=== PATIENT | female | born 1935 | race Caucasian/White ===

== ENCOUNTER → 2017-07-05 | Outpatient (CLI) | payer OTHER ==
[~2017-07-05] MED LIST: ASPIRIN EC81 M1 PO; CALCIUM 500 +1 EAC1 PO; CENTRUM SILVER1 EAC4 PO; CITRATE OF MAG296 ML PO; DIAZEPAM; FLONASE 0.05%50 MCG NASAL; LEVOXYL50 MCG PO; LOVASTATIN; MELATONIN1 MG PO; MEVACOR40 MG PO; NEXIUM; NEXIUM40 MG PO; PROZAC 20 MG20 MG PO; REMERON15 MG PO; SYNTHROID; SYNTHROID50 MCG PO; SYNTHROID75 MCG PO; TRAMADOL 50 MG50 MG PO; TRAZODONE HCL50 MG PO; TYLENOL EXTRA500 MG PO; VITAMIN E400 UNI2 PO; ZANTAC 150MG T150 MG PO; ZOFRAN ODT4 MG PO; ZYRTEC 10 MG TA10 MG PO
== END ==
LOC: RAD 13:58
DX: M16.11 Unilateral primary osteoarthritis, right hip (principal)

== ENCOUNTER 2017-08-08 15:44 | Inpatient (IN) | payer OTHER ==
[~2017-08-08] VITALS: Ht 162.6 cm; Wt 60.1 kg
--- NOTE | ~2017-08-08 | EKG ---
[facility] [place] [address] ELECTROCARDIOGRAM REPORT Name: SANDRA FLORENTINO Room #: [facility] Fatima#: [id number] Admission: 08/08/17 Attend Phys: Discharge: Date of : 31 Report #: [id number] THIS REPORT FOR: //name// [facility] ED Test Date: 2017-08-08 Test Time: 16:52:33 Pat Name: SANDRA FLORENTINO Department: Room: Gender: F Ad Clerk: yue : 1935 Requested By: Garth Domingo Order Number: [id number] MD: Donte Pratt Measurements Intervals [place] Rate: 62 P: 57 CT: 222 QRS: -18 QRSD: 155 T: 108 QT: 497 QTc: 505 Interpretive Statements Sinus rhythm Prolonged CT interval Left bundle branch block Compared to ECG 02/24/2014 11:29:30 First degree AV block now present Atrial premature complex(es) no longer present Electronically Signed On 08-08-2017 17:22:04 CDT by Donte Pratt [email or web address] <ELECTRONICALLY SIGNED> By: Donte Pratt MD, [facility] 08/08/17 172 51 51 Donte Pratt MD, [facility] /EPI
[~2017-08-08 15:44] MED LIST changes: -CALCIUM 500 +1 EAC1 PO; -CENTRUM SILVER1 EAC4 PO; -FLONASE 0.05%50 MCG NASAL; -PROZAC 20 MG20 MG PO; -REMERON15 MG PO; -SYNTHROID50 MCG PO; -SYNTHROID75 MCG PO; -TRAZODONE HCL50 MG PO; -TYLENOL EXTRA500 MG PO; -VITAMIN E400 UNI2 PO; -ZYRTEC 10 MG TA10 MG PO
[2017-08-08 16:08] VITALS: BP 109/53
[2017-08-08 16:30] LABS: ABSOLUTE NEUTROPHILS 1.4 thou/uL (1.4-8.2); BASOPHILS 0.8 % (0.0-2.0); EOSINOPHILS 3.4 % (0.0-3.0); HEMATOCRIT 36.3 % (37.0-47.0); HEMOGLOBIN 12.4 gm/dL (12.0-15.0); LYMPHOCYTES 57.1 % (24.0-44.0); MCH 30.3 pg (26.0-34.0); MCHC 34.3 g/dL (28.0-37.0); MCV 88.4 fL (80.0-100.0); MONOCYTES 11.1 % (1.0-8.0); PLATELET COUNT 274 thou/uL (150-400); POLYS 27.6 % (36.0-66.0)
[2017-08-08 16:39] LABS: URINE BILIRUBIN NEGATIVE (Negative); URINE BLOOD 1+ (Negative); URINE CLARITY CLEAR; URINE COLOR YELLOW; URINE GLUCOSE-RANDOM* NEGATIVE (Negative); URINE KETONES NEGATIVE (Negative); URINE LEUKOCYTES-REFLEX NEGATIVE (Negative); URINE NITRITE-REFLEX NEGATIVE (Negative); URINE PROTEIN (DIPSTICK) NEGATIVE (Negative); URINE UROBILINOGEN 0.2 E.U./dl (0.2-1.0)
[2017-08-08 16:41] LABS: ANION GAP 5 mmol/L (7-16); BUN 17 mg/dL (7-18); CALCIUM 10.1 mg/dL (8.5-10.1); CHLORIDE 96 mmol/L (98-107); CO2 29 mmol/L (21-32); CREATININE 1.2 mg/dL (0.6-1.0); GLUCOSE 99 mg/dL (74-106); POTASSIUM 3.6 mmol/L (3.5-5.1); SODIUM 130 mmol/L (136-145)
[2017-08-08 16:46] LABS: ALBUMIN 3.3 g/dL (3.4-5.0); DIRECT BILIRUBIN < 0.1 mg/dL (<0.1-0.3); SGOT 27 U/L (15-37); SGPT 19 U/L (30-65); TOTAL BILIRUBIN 0.2 mg/dL (<0.1-1.0); TOTAL PROTEIN 7.3 g/dL (6.4-8.2); TROPONIN-I < 0.04 ng/mL (<0.06)
[2017-08-08 16:51] LABS: BACTERIA-REFLEX None Seen /HPF (None Seen); CASTS None Seen /LPF (None Seen); CRYSTALS None Seen /LPF (None Seen); SQUAMOUS None Seen /LPF (0-3); URINE RBC 0-2 Rare /HPF (0-2); URINE WBC-REFLEX 0-5 Rare /HPF (0-5)
[2017-08-08 18:18] VITALS: BP 109/53
[2017-08-08 18:35] VITALS: BP 110/62
[2017-08-08 20:15] VITALS: BP 144/68
[2017-08-09 04:00] VITALS: BP 121/55
[2017-08-09 07:00] VITALS: BP 116/60
[2017-08-09 10:18] LABS: HEMATOCRIT 34.5 % (37.0-47.0); HEMOGLOBIN 11.8 gm/dL (12.0-15.0); MCH 30.5 pg (26.0-34.0); MCHC 34.2 g/dL (28.0-37.0); MCV 89.1 fL (80.0-100.0); RBC 3.87 mil/uL (4.20-5.00); RDW 13.9 % (10.5-14.5); WBC 4.3 thou/uL (4.0-11.0)
[2017-08-09 10:39] LABS: CALCIUM 9.5 mg/dL (8.5-10.1); CREATININE 1.2 mg/dL (0.6-1.0); POTASSIUM 3.6 mmol/L (3.5-5.1)
[2017-08-09 16:02] VITALS: BP 109/60
[2017-08-09 20:00] VITALS: BP 105/55
[2017-08-10 02:30] VITALS: BP 125/65
[2017-08-10 07:50] VITALS: BP 134/64
[2017-08-10 19:51] VITALS: BP 127/58
[2017-08-11 07:42] VITALS: BP 133/62
[2017-08-11] MEDS ORDERED: PROZAC 20 MG20 MG PO (09:54)
[2017-08-11] MEDS ORDERED: TRAZODONE HCL50 MG PO (09:54)
[2017-08-11] MEDS ORDERED: SYNTHROID75 MCG PO (09:54)
[2017-09-19] MEDS ORDERED: CALCIUM 500 +1 EAC1 PO (17:56)
[2017-09-19] MEDS ORDERED: SYNTHROID50 MCG PO (17:57)
[2017-09-19] MEDS ORDERED: CENTRUM SILVER1 EAC4 PO (17:58)
[2017-09-19] MEDS ORDERED: VITAMIN E400 UNI2 PO (17:59)
[2017-09-19] MEDS ORDERED: ZYRTEC 10 MG TA10 MG PO (18:00)
[2017-09-19] MEDS ORDERED: REMERON15 MG PO (18:01)
[2017-09-19] MEDS ORDERED: TYLENOL EXTRA500 MG PO (18:02)
[2017-09-19] MEDS ORDERED: FLONASE 0.05%50 MCG NASAL (18:02)
== END 2017-08-11 15:47 | DRG 683 ==
LOC: ER 15:44 → EROBS 18:12 → 4E 18:12 → SICU 08-09 08:30
PROVIDERS: Emergency Medicine; Family Medicine
DX: N17.9 Acute kidney failure, unspecified (principal); E87.1 Hypo-osmolality and hyponatremia; E05.90 Thyrotoxicosis, unspecified without thyrotoxic crisis or storm; F32.9 Major depressive disorder, single episode, unspecified; E78.00 Pure hypercholesterolemia, unspecified; Z79.899 Other long term (current) drug therapy; Z88.1 Allergy status to other antibiotic agents; Z88.0 Allergy status to penicillin; Z88.8 Allergy status to other drugs, medicaments and biological substances
CPT/HCPCS: 15000

== ENCOUNTER 2018-07-31 13:04 | Inpatient (IN) | payer OTHER ==
[~2018-07-31] VITALS: Ht 162.6 cm; Wt 54.4 kg
[~2018-07-31 13:04] MED LIST changes: +CALCIUM 500 +1 EAC1 PO; +CENTRUM SILVER1 EAC4 PO; +FLONASE 0.05%50 MCG NASAL; +PROZAC 20 MG20 MG PO; +REMERON15 MG PO; +SYNTHROID50 MCG PO; +SYNTHROID75 MCG PO; +TRAZODONE HCL50 MG PO; +TYLENOL EXTRA500 MG PO; +VITAMIN E400 UNI2 PO; +ZYRTEC 10 MG TA10 MG PO
[2018-07-31 13:21] VITALS: BP 96/43
[2018-07-31 13:41] LABS: ABSOLUTE NEUTROPHILS 3.9 thou/uL (1.4-8.2); BASOPHILS 0.6 % (0.0-2.0); EOSINOPHILS 1.8 % (0.0-3.0); HEMATOCRIT 41.7 % (37.0-47.0); HEMOGLOBIN 14.1 gm/dL (12.0-15.0); LYMPHOCYTES 50.9 % (24.0-44.0); MCH 29.2 pg (26.0-34.0); MCHC 33.8 g/dL (28.0-37.0); MCV 86.5 fL (80.0-100.0); MONOCYTES 8.2 % (1.0-8.0); PLATELET COUNT 306 thou/uL (150-400); POLYS 38.5 % (36.0-66.0); RBC 4.82 mil/uL (4.20-5.00); RDW 14.3 % (10.5-14.5)
[2018-07-31 13:48] LABS: CALCIUM 10.8 mg/dL (8.5-10.1); CREATININE 1.5 mg/dL (0.6-1.0); POTASSIUM 3.9 mmol/L (3.5-5.1)
[2018-07-31 13:54] LABS: ALBUMIN 3.5 g/dL (3.4-5.0); TOTAL BILIRUBIN 0.4 mg/dL (<0.1-1.0); TOTAL PROTEIN 8.5 g/dL (6.4-8.2)
[2018-07-31 14:28] LABS: URINE BILIRUBIN NEGATIVE (Negative); URINE BLOOD 1+ (Negative); URINE CLARITY CLEAR; URINE COLOR YELLOW; URINE GLUCOSE-RANDOM* NEGATIVE (Negative); URINE KETONES NEGATIVE (Negative); URINE LEUKOCYTES NEGATIVE (Negative); URINE NITRITE NEGATIVE (Negative); URINE PROTEIN (DIPSTICK) TRACE (Negative); URINE SPECIFIC GRAVITY 1.025 (1.005-1.035); URINE UROBILINOGEN 0.2 E.U./dl (0.2-1.0)
[2018-07-31 14:44] LABS: BACTERIA None Seen /HPF (None Seen); SQUAMOUS None Seen /LPF (0-3); URINE RBC 0-2 Rare /HPF (0-2); URINE WBC 0-5 Rare /HPF (0-5)
[2018-07-31 14:45] LABS: AMORPHOUS URATES Moderate /LPF (None Seen); HYALINE CASTS 0-3 Few /LPF (None Seen)
[2018-07-31 15:24] VITALS: BP 134/64
[2018-07-31 16:31] VITALS: BP 138/68
[2018-07-31 16:37] VITALS: BP 153/69
[2018-07-31] MEDS ORDERED: KLOR-CON 1010 MEQ PO (18:24)
[2018-07-31] MEDS ORDERED: IRON325 PO (18:25)
[2018-07-31] MEDS ORDERED: VITAMIN B-12500 MCG PO (18:26)
[2018-07-31] MEDS ORDERED: VITAMIN D3400 UNIT PO (18:27)
[2018-07-31] MEDS ORDERED: ARICEPT 5 MG TAB5 MG PO (18:28)
[2018-07-31 19:23] VITALS: BP 140/61
--- NOTE | 2018-08-01 02:54 | NUR ---
ASSUMED CARE AT 1900, CHECKED ON PT, SLEEPING IN BED. IMPULSIVE UP TO BSC, FORGETS TO CALL FOR HELP. ASSISTED TO BSC TWICE, REQUIRED LINEN CHANGE ONCE; HAVING LOOSE/LIQUID STOOLS. OBTAINED ORDERS FOR IV FLUIDS, TYLENOL, AND SOME HOME MEDS. TRANSITIONED CARE TO ANOTHER RN AT 2130, REPORT GIVEN AND PT IN STABLE CONDITION.
[2018-08-01 04:01] VITALS: BP 123/51
--- NOTE | 2018-08-01 04:34 | NUR ---
Pt a/o to self, confused, calm, coorperative. Incontinent bladder, perineal care provided, linen/pad changed. No diarrhea/BM noted. VSS. Pt resting in bed comfortably at this time. No apparent distress noted. Bed alarm on. Fall precautions maintained. Call light within reach. Will continue to monitor.
[2018-08-01 07:35] VITALS: BP 120/50
--- NOTE | 2018-08-01 07:49 | EKG ---
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: NEIDA : 1935 Requested By: Susan Herring Order Number: [id number] MD: Donte Pratt Measurements Intervals [place] Rate: 83 P: 73 VT: 184 QRS: -14 QRSD: 137 T: 131 QT: 374 QTc: 440 Interpretive Statements Sinus rhythm with atrial premature complexes Left bundle branch block Compared to ECG 08/08/2017 16:52:33 Atrial premature complexes are now present Electronically Signed On 08-01-2018 7:49:25 CDT by Donte Pratt [email or web address] ��������������������������������������������� <ELECTRONICALLY SIGNED> ���������������������������������������� By: Donte Pratt MD, [facility] ��������������������������������������������� 08/01/18 0749 1438 1438 Donte Pratt MD, [facility] /EPI
[2018-08-01 07:51] VITALS: BP 120/50
--- NOTE | 2018-08-01 07:52 | NUR ---
ASSESMENT COMPLETED. VSS. CONFUSED/IMPULSIVE. ATTEMPTED TO GET OUT OF BED SEVERAL TIMES THIS AM. FALL PRECAUTIONS INTACT. MEDS GIVEN ORDERED. PT RESTING IN BED AT THIS TIME. WILL CONT. TO MONITOR.
--- NOTE | 2018-08-01 10:11 | NUR ---
Assess due to high nutrition risk screening for wt loss 2-13 lb and decreased po intake. Admitted with AMS, diarrhea, cdiff test pending. Pt confused. Currently on clear liquid diet. Wt from 1 yr ago [facility] record indicates 10 lb wt loss. Can add ensure clear bid. Follow for timely diet advance and tolerance. Low nutrition risk
--- NOTE | 2018-08-01 12:36 | NUR ---
SPOKE TO SON/DPOA. UPDATED ON PT STATUS AND NOTIFIED SON ABOUT PT BEING IN RESTRAINTS. PT APPEARS COMFORTABLE AT THIS TIME. RESTRAINTS REASSESSED AND REAPPLIED ORDERED. WILL CONT. TO MONITOR.
--- NOTE | 2018-08-01 12:37 | NUR ---
PT RESTING IN BED. NO CONCERNS AT THIS TIME. STOOL SENT DOWN FOR CDIFF. WILL CONT. TO MONITOR.
--- NOTE | 2018-08-01 15:40 | NUR ---
PT ADMITTED RELATED TO [facility]. CM REVIEWED CHART AND SPOKE WITH CARE TEAM. CM MET WITH PT, SPOUSE, AND DTR AT BEDSIDE THIS DAY. PT IS A&O X4 BUT [place]. PT AND DTR INDICATED THAT PT HAD BEEN LIVING IN A HOUSE WITH HER SPOUSE. DTR INDICATED THE HOUSE IS SPLIT LEVEL WITH 5 STEPS TO ENTER KITCHEN LIVING ROOM LEVEL, 5 UP TO BEDROON AND BATHROOM, 5 DOWN TO WASHER, AND 5 MORE DOWN TO DRYER. PT AND DTR INDICATED THAT PT HAD BEEN INDEPENDENT WITH GAIT AND ADLS ACCOUNT SUPPORT REP BUT THAT PT HAD USED A FWW IN THE COMMUNITY. THEY INDICATED THEY WERE INTERESTED IN PT GOING FOR A POST ACUTE CARE STAY AND HAVING SPOUSE STAY A RESPITE. DTR INDICATED THEY HAD BEEN AT [facility] IN THE PAST AND THAT THEY WOULD BE RECEPTIVE TO PT GOING THERE OR TO [facility]. CM TO FOLLOW INDICATED WITH DC PLANNING.
--- NOTE | 2018-08-01 16:34 | NUR ---
FAXED REFERRAL TO [facility] SPOKE WITH KAMRYN IN ADM. SHE RECEIVED REFERRAL AND WILL REVIEW. DCP TO FOLLOW.
[2018-08-01 17:32] VITALS: BP 131/63
[2018-08-01 19:48] VITALS: BP 152/66
--- NOTE | 2018-08-02 03:25 | NUR ---
PT REMAINS CONFUSED AND IMPULSIVE. STILL WITH DIARHOEA. SHE HAS BEEN INCONTINENT THIS SHIFT.TAKES MEDS OKAY. GIVEN TYLENOL FOR R KNEE PAIN. AFEBRILE.NO FURTHER CONCERNS.
[2018-08-02 05:30] VITALS: BP 144/65
[2018-08-02 07:44] VITALS: BP 148/53
[2018-08-02 08:32] LABS: CALCIUM 9.4 mg/dL (8.5-10.1); CREATININE 0.9 mg/dL (0.6-1.0); POTASSIUM 3.5 mmol/L (3.5-5.1)
[2018-08-02 18:33] VITALS: BP 150/64
[2018-08-02 20:00] VITALS: BP 142/60
[2018-08-03 03:15] VITALS: BP 151/62
--- NOTE | 2018-08-03 05:53 | NUR ---
PT REQUIRES MAX ASSIST TO THE BEDSIDE COMMODE. PT WAS ALSO INCONTINENT OF BLADDER. SLEEPING MOST OF THE NIGHT. SELF REPOSITIONS IN BED. AFEBRILE.FALL PREC IN PLACE.
[2018-08-03 07:35] VITALS: BP 191/82
[2018-08-03] MEDS ORDERED: LOPERAMIDE 2 MG2 MG PO (09:08)
[2018-08-03] MEDS ORDERED: PREDNISONE 20 M20 MG PO (09:38)
--- NOTE | 2018-08-03 11:29 | NUR ---
Assessment completed.vss. Pt in bed for breakfast.Poor appetite.Complete bath and bed change done by alumni coordinator.Dr Sharma here,dc order noted.[employer] notified about pt dc today.Dc summary faxed and transport arranged for 1400.Pt and her family notified.Report off to Taj lott. Pt will bed dc per wv van at 1400 today.
== END 2018-08-03 14:00 | DRG 682 ==
LOC: ER 13:04 → 4E 15:09 → EROBS 15:09 → 4E 17:03
PROVIDERS: Nurse Practitioner Family; ADMIT Family Medicine
DX: N17.0 Acute kidney failure with tubular necrosis (principal); G92 Toxic encephalopathy; R19.7 Diarrhea, unspecified; E05.90 Thyrotoxicosis, unspecified without thyrotoxic crisis or storm; E78.00 Pure hypercholesterolemia, unspecified; H91.90 Unspecified hearing loss, unspecified ear; F03.90 Unspecified dementia, unspecified severity, without behavioral disturbance, psychotic disturbance, mood disturbance, and anxiety; M54.5 Low back pain; M54.10 Radiculopathy, site unspecified; M48.00 Spinal stenosis, site unspecified; M25.561 Pain in right knee; R31.9 Hematuria, unspecified; Z86.73 Personal history of transient ischemic attack (TIA), and cerebral infarction without residual deficits; Z79.82 Long term (current) use of aspirin; Z79.899 Other long term (current) drug therapy; Z88.1 Allergy status to other antibiotic agents; Z88.0 Allergy status to penicillin; Z88.2 Allergy status to sulfonamides; Z88.8 Allergy status to other drugs, medicaments and biological substances
CPT/HCPCS: 10084

== ENCOUNTER 2018-09-25 13:41 | Inpatient (IN) | payer OTHER ==
[~2018-09-25] VITALS: Ht 165.1 cm; Wt 54.1 kg
[~2018-09-25 13:41] MED LIST changes: +ARICEPT 5 MG TAB5 MG PO; +FERROUS SU220 MG/52 PO; +KLOR-CON 1010 MEQ PO; +LOPERAMIDE 2 MG2 MG PO; +LOVASTAT40 PO; -MEVACOR40 MG PO; +PREDNISONE 20 M20 MG PO; +VITAMIN B-12500 MCG PO; +VITAMIN D3400 UNIT PO
[2018-09-25 13:43] VITALS: BP 151/72
[2018-09-25 14:11] LABS: ABSOLUTE NEUTROPHILS 3.3 thou/uL (1.4-8.2); BASOPHILS 0.5 % (0.0-2.0); EOSINOPHILS 4.7 % (0.0-3.0); HEMATOCRIT 32.7 % (37.0-47.0); HEMOGLOBIN 11.1 gm/dL (12.0-15.0); LYMPHOCYTES 41.9 % (24.0-44.0); MCH 29.4 pg (26.0-34.0); MCHC 33.8 g/dL (28.0-37.0); MCV 86.9 fL (80.0-100.0); MONOCYTES 8.9 % (1.0-8.0); PLATELET COUNT 356 thou/uL (150-400); RBC 3.76 mil/uL (4.20-5.00); RDW 15.2 % (10.5-14.5); WBC 7.6 thou/uL (4.0-11.0)
[2018-09-25] MEDS ORDERED: CIPRO250 M1 PO (14:11)
[2018-09-25 14:19] LABS: ANION GAP 7 mmol/L (7-16); BUN 10 mg/dL (7-18); CALCIUM 9.4 mg/dL (8.5-10.1); CHLORIDE 89 mmol/L (98-107); CO2 25 mmol/L (21-32); CREATININE 0.9 mg/dL (0.6-1.0); GLUCOSE 107 mg/dL (74-106); POTASSIUM 3.5 mmol/L (3.5-5.1); SODIUM 121 mmol/L (136-145)
[2018-09-25 14:30] LABS: ALBUMIN 2.8 g/dL (3.4-5.0); LIPASE 560 U/L (73-393); SGOT 24 U/L (15-37); SGPT 15 U/L (30-65); TOTAL BILIRUBIN 0.3 mg/dL (<0.1-1.0); TROPONIN-I <0.06 ng/mL (<0.06)
[2018-09-25 14:32] LABS: URINE BILIRUBIN NEGATIVE (Negative); URINE BLOOD 2+ (Negative); URINE CLARITY CLEAR; URINE COLOR YELLOW; URINE GLUCOSE-RANDOM* NEGATIVE (Negative); URINE KETONES NEGATIVE (Negative); URINE LEUKOCYTES-REFLEX NEGATIVE (Negative); URINE NITRITE-REFLEX NEGATIVE (Negative); URINE PROTEIN (DIPSTICK) NEGATIVE (Negative); URINE UROBILINOGEN 0.2 E.U./dl (0.2-1.0)
[2018-09-25 14:45] LABS: AMORPHOUS URATES Moderate /LPF (None Seen); BACTERIA-REFLEX 1-9 Few /HPF (None Seen); CASTS None Seen /LPF (None Seen); SQUAMOUS None Seen /LPF (0-3); URINE RBC 3-10 Few /HPF (0-2); URINE WBC-REFLEX None Seen /HPF (0-5)
[2018-09-25 17:17] VITALS: BP 151/72
[2018-09-25 19:30] VITALS: BP 141/67
[2018-09-25 23:05] VITALS: BP 152/67
[2018-09-26 04:05] VITALS: BP 137/67
[2018-09-26 05:10] LABS: HEMATOCRIT 34.1 % (37.0-47.0); HEMOGLOBIN 11.6 gm/dL (12.0-15.0)
--- NOTE | 2018-09-26 06:42 | NUR ---
ASSUMED CARE OF PT AT 1900. A&Ox3, FORGETFUL AT TIMES. VS STABLE. SR W/ BBB ON TELE. DENIED PAIN. NO VOMITING SINCE ADMISSION. SEVERAL LOOSE STOOLS. FREQUENT URINATION. UP X 1 W/ WALKER TO BR. HAS BEEN NPO SINCE MIDNIGHT. DAUGHTER WAS AT BEDSIDE AND WILL RETURN THIS AM FOR PROCEDURE. MINIMAL PROGRESSION TOWARDS GOALS OVER NOC. WILL CONTINUE TO PROVIDE CARE AND MONITOR.
--- NOTE | 2018-09-26 07:50 | EKG ---
[place] [address] [facility] [place] [address] ELECTROCARDIOGRAM REPORT Name: SANDRA FLORENTINO Room #: 352-P ADM IN M.R.#: [id number] ������������������ Admission: 09/25/18 ������������������ Attend Phys: Eliud Sharma MD Discharge: ������������������ Date of : 31 Report #: [id number] ����������������������������������������������������������������� [id number] THIS REPORT FOR: //name// [facility] ED Test Date: 2018-09-25 Test Time: 15:30:14 Pat Name: SANDRA FLORENTINO Department: Room: [facility] Gender: F Commercial Loan Reviewer: DANNA : 1935 Requested By: Rashmi Ludwig Order Number: [id number] MD: Donte Pratt Measurements Intervals [place] Rate: 65 P: 74 NC: 215 QRS: -23 QRSD: 145 T: 77 QT: 497 QTc: 517 Interpretive Statements Sinus rhythm Borderline prolonged NC interval Left bundle branch block Compared to ECG 07/31/2018 14:38:57 Atrial premature complex(es) no longer present Electronically Signed On 09-26-2018 7:50:03 CDT by Donte Pratt [email or web address] ��������������������������������������������� <ELECTRONICALLY SIGNED> ���������������������������������������� By: Donte Pratt MD, [facility] ��������������������������������������������� 09/26/18 0750 1530 153 Donte Pratt MD, [facility] /EPI
[2018-09-26 08:03] VITALS: BP 138/58
[2018-09-26 10:53] LABS: CALCIUM 9.7 mg/dL (8.5-10.1)
[2018-09-26 10:59] LABS: ALBUMIN 2.8 g/dL (3.4-5.0); TOTAL BILIRUBIN 0.4 mg/dL (<0.1-1.0)
[2018-09-26 11:15] VITALS: BP 125/50
--- NOTE | 2018-09-26 13:20 | NUR ---
PT IS A&0X3, FORGETFUL, NULATO, URGENCY FOR TOILETING, BED ALARM ENGAGED. LATER FAMILY IS AT BEDSIDE, AND NOW CAREGIVER, CARDIAC MONITORING, DAUGHTER VERY SUPPORTIVE. SEE INTERVENTION FOR ASSESSMENT, WAS NPO FOR SCOPE PROCEDURE YET DISCOVERED NA+ TOO LOW, RESCHEDULED FOR TOMORROW (CALLED PRE-OP) TO ENSURE SCHEDULED. NO VOMITING OR NAUSEA. WILL CONTINUE TO MONITOR, IVF INFUSING
--- NOTE | 2018-09-26 14:31 | NUR ---
ASSESSMENT: CM REVIEWED CHART AND MET WITH PATIENT AT THE BEDSIDE. PT WAS ADMITTED WITH HYPOXIA/WEAKNESS/ AND EMESIS AT HOME. PT WAS ASLEEP BUT HER CAREGIVER LALY WAS AT THE BEDSIDE. LALY WORKS FOR [employer] AND IS PATIENT AND HER HUSBANDS PRIVATE CAREGIVER NORMALLY MON-FRI 9-5 BUT HAS BEEN STAYING 7 DAYS A WEEK LATELY. PT ALSO GETS SERVICES CURRENTLY THROUGH [facility] (RN,PT,OT). PT WAS RECENTLY AT [facility] AND THEN DISCHARGED HOME WITH [facility]. PATIENTS BRIDGETT RENDON IS ALSO VERY SUPPORTIVE AND HELPFUL. CAREGIVER STATES PATIENT NORMALLY WALKS INDEPENDENTLY UNLESS GOING OUT OF THE HOUSE USES A WALKER. PT HAS ABOUT 4 STEPS TO ENTER THE HOME. ONCE INSIDE PATIENT HAS ABOUT 6 STEPS WITH A HANDRAIL TO HER BEDROOM. PT ALSO HAS A GRAB BAR AND SHOWER BENCH AND HAS BEEN ABLE TO SHOWER INDEPENDENTLY PER THE CAREGIVER. CM DISCUSSED ROLE. PT SPOKE WITH PATIENTS BRIDGETT RENDON AND SHE STATES IF PATIENT NEEDS SNF AGAIN THEY PREFER TO GO BACK TO [facility] AND IF NOT THEN SHE WILL RETURN HOME WITH [facility] AND PRIVATE SERVICE ADMINISTRATOR. [phone] TO NOTIFY SHE WAS IN THE HOSPITAL AND FAXED CLINICAL TO THEM AT [phone]. PT/OT EVALS PENDING. CM WILL CONTINUE TO FOLLOW TO ASSIST NEEDED.
[2018-09-26 16:23] VITALS: BP 118/64
[2018-09-26 20:10] VITALS: BP 127/64
[2018-09-27 03:40] VITALS: BP 130/60
[2018-09-27 05:02] LABS: HEMOGLOBIN 10.8 gm/dL (12.0-15.0)
[2018-09-27 05:30] LABS: CALCIUM 9.5 mg/dL (8.5-10.1); CREATININE 0.8 mg/dL (0.6-1.0); POTASSIUM 3.5 mmol/L (3.5-5.1)
--- NOTE | 2018-09-27 06:51 | NUR ---
PT MAKING PROGRESS TOWARDS GOALS. HAS DENIED ANY PAIN OR NAUSEA OVERNIGHT. NPO AT MIDNIGHT FOR EGD TODAY. SUPPORT GIVEN PT HAS STATED A FEW TIMES "I HOPE I DON'T HAVE TO HAVE SURGERY TO FIX THIS."
--- NOTE | 2018-09-27 07:38 | NUR ---
Patient left unit before shift report for EGD.
--- NOTE | 2018-09-27 09:45 | NUR ---
ON-GOING ASSESSMENT: CM REVIEWED CHART AND SPOKE WITH ATTENDING. PT WOULD BENEFIT FROM SNF AT DISCHARGE AND LIKELY BE READY FOR DISCHARGE TO SNF TOMORROW. CM SPOKE WITH PATIENTS DAUGHTER JULIETA WHO STATES THEY WANT A REFERRAL TO [facility] SNF BUT STATES SHE WANTS HER DAD (PATIENTS ) TO GO THERE WITH HER WELL. PTS DAUGHTER REPORTS SHE PRIVATELY PAID FOR HER TO STAY WITH HER IN THE SNF LAST TIME SHE WAS THERE AND PREFERS TO DO THIS AGAIN AND THEY HAD A ROOM WITH A DOUBLE BED. CM REACHED OUT TO [facility] AND SPOKE WITH ADMISSIONS TO UPDATE THEM. THEY ARE FURTHER REVIEWING AND REACHING OUT TO PATIENTS DAUGHTER TO WHAT THE COST WOULD BE. CM WILL CONTINUE TO FOLLOW TO ASSIST NEEDED.
[2018-09-27 09:56] VITALS: BP 154/73
--- NOTE | 2018-09-27 10:19 | NUR ---
ON-GOING ASSESSMENT: LINDA SPOKE WITH KAMRYN IN ADMISSIONS AT [facility] WHO STATES THEY CAN ACCEPT PATIENT FOR SNF TOMORROW. PTS DAUGHTER ALSO WANTED PATIENTS TO GO TO THE SNF WITH HER SO HER CAN DO A RESPITE STAY WHILE SHE IS AT SNF AND [facility] STATING THEY CAN TAKE BOTH PATIENTS DAUGHTER PRIVATELY PAID FOR HIM LAST TIME AND SHE HAS REACHED OUT TO THE DAUGHTER WITH THE COST. IF PATIENT IS STABLE TO DISCHARGE OVER THE WEEKEND [facility] CAN ACCEPT HER AND CONTACT KAMRYN ON HER CELL IN ADMISSION AT [phone] AND SHE WILL ARRANGE TRANSPORTATION FOR PATIENT. [facility] MAIN LINE FOR REPORT:[phone], FAX FOR DISCHARGE ORDERS: [phone]. SEND PATIENT WITH A CHART COPY. CONTACT PATIENTS DAUGHTER JULIETA TO NOTIFY.
[2018-09-27 11:15] VITALS: BP 132/66
--- NOTE | 2018-09-27 14:13 | NUR ---
ASSUMED CARE OF PT AT 0700. PT RETURNED FROM EGD AT APRPOXIMATELY 1030. EGD DID NOT INDICATE ANY SOURCE OF BLEEDING. PT IS AWAKE AND ALERT, ORIENTATED TO PERSON, TIME, AND SITUATION. PT IS A LITTLE DISORIENTATED TO PHYSICAL LOCATION. PATIENT HAS DENIED ALL PAIN AND NAUSEA. ONLY COMPLAINTS ARE OF BEING COLD. PT IS IMPULSIVE AND WILL GET UP TO USE THE BATHROOM WITHOUT CALLING. HAVE SET THE PT'S BED ALARM TO THE MID-ZONE, TO INCREASE ALARM SENSITIVITY AND HAVE BED RAILS UP. FALL PRECAUTIONS IN PLACE. PT IS SLOWLY PROGRESSING TOWARD POC GOALS. WILL CONTINUE TO MONITOR AND ASSESS.
[2018-09-27 15:21] VITALS: BP 131/50
[2018-09-27 19:45] VITALS: BP 140/62
[2018-09-28 04:10] VITALS: BP 131/60
--- NOTE | 2018-09-28 06:33 | NUR ---
PT MAKING PROGRESS TOWARDS GOALS. HAS DENIED ANY NAUSEA OR GI DISTRESS. "I'M GLAD I DON'T HAVE TO HAVE SURGERY. AND I WANT TO GO HOME."
[2018-09-28 07:21] VITALS: BP 165/84
[2018-09-28] MEDS ORDERED: PROTONIX40 M1 PO (09:11)
--- NOTE | 2018-09-28 09:54 | NUR ---
PT ALERT AND ORIENTED TIMES FOUR, VSS, 97%RA, SR ON TELE, IVF INFUSING PER ORDER. PT DENIES PAIN/SOA. PT TOLERATES MEDS AND BREAKFAST THIS MORNING. PT EXCITED FOR POSSIBLE DISCHGARGE TO SNF TODAY. WILL CONTINIUE TO MONITOR.
--- NOTE | 2018-09-30 17:06 | PATH ---
[facility] [address] [place] [address] PATHOLOGY RPT PROCEDURE Name: CHERYL FLORENTINO Room #: 352-P DIS IN M.R.#: [id number] ������������������ Admission: 09/25/18 ������������������ Date of : 33 Discharge: 09/28/18 Report #: [id number] Path Case #: [id number] [facility] Accession Number: [id number] . 01 Material submitted: . small bowel - BX SM BOWEL R/O CELIAC DISEASE . 01 Clinical history: . Pre-OP DX: Hematemesis, chronic diarrhea Post-OP DX: Hiatal hernia . 02 Diagnosis: Small bowel mucosa, rule out celiac disease, endoscopic biopsy: - No diagnostic abnormalities present. - Negative for villous blunting or increase in intraepithelial lymphocytes. (IUV:federal agent; 09/30/2018) MBR/09/30/2018 . 02 Electronically signed: . Sophie Green MD, Pathologist NPI- [id number] . 01 Gross description: . Received in formalin labeled "Hook, Cheryl, BX small bowel, rule out celiac," are 4 segments of van soft tissue measuring 1.1 x 0.6 x 0.3 cm in aggregate dimensions and ranging from 0.3 to 0.5 cm in maximum dimension. The specimen is submitted entirely in cassette A1. (TSD; 09/27/2018) TOB/TOB . 02 Pathologist provided ICD-10: K44.9, K92.0, K52.9 . 02 CPT . [id number] Specimen Comment: A courtesy copy of this report has been sent to Specimen Comment: [phone]. Specimen Comment: Report sent to DR PIZANO Performed at: [address], [place] [id number] MD Glen Brand MD Phone: [phone] Performed at: [address] [id number] MD Sophie Green MD Phone: [phone]
== END 2018-09-28 11:47 | DRG 377 ==
LOC: ER 13:41 → 3W 15:21 → EROBS 15:21 → 3W 18:28
PROVIDERS: Internal Medicine Gastroenterology; Physician Assistant; ADMIT Family Medicine
PROC: 0DB88ZX Excision of Small Intestine, Via Natural or Artificial Opening Endoscopic, Diagnostic (ICD-10-PCS; principal; 2018-09-27)
DX: K92.0 Hematemesis (principal); E43 Unspecified severe protein-calorie malnutrition; E87.1 Hypo-osmolality and hyponatremia; N39.0 Urinary tract infection, site not specified; Z68.1 Body mass index [BMI] 19.9 or less, adult; E03.9 Hypothyroidism, unspecified; E78.00 Pure hypercholesterolemia, unspecified; F03.90 Unspecified dementia, unspecified severity, without behavioral disturbance, psychotic disturbance, mood disturbance, and anxiety; E78.5 Hyperlipidemia, unspecified; R06.6 Hiccough; K52.9 Noninfective gastroenteritis and colitis, unspecified; D64.9 Anemia, unspecified; K44.9 Diaphragmatic hernia without obstruction or gangrene; Z88.1 Allergy status to other antibiotic agents; Z88.0 Allergy status to penicillin; Z88.2 Allergy status to sulfonamides; Z88.8 Allergy status to other drugs, medicaments and biological substances; Z80.0 Family history of malignant neoplasm of digestive organs
CPT/HCPCS: 10879; 62110; 62900

== ENCOUNTER 2018-10-05 13:11 | Inpatient (IN) | payer OTHER ==
[~2018-10-05] VITALS: Ht 175.3 cm; Wt 59.0 kg
[~2018-10-05 13:11] MED LIST changes: +CIPRO250 M1 PO; +PROTONIX40 M1 PO
[2018-10-05 13:38] LABS: URINE BILIRUBIN NEGATIVE (Negative); URINE BLOOD 1+ (Negative); URINE CLARITY CLEAR; URINE COLOR YELLOW; URINE GLUCOSE-RANDOM* NEGATIVE (Negative); URINE KETONES NEGATIVE (Negative); URINE LEUKOCYTES-REFLEX NEGATIVE (Negative); URINE NITRITE-REFLEX NEGATIVE (Negative); URINE PROTEIN (DIPSTICK) TRACE (Negative); URINE UROBILINOGEN 0.2 E.U./dl (0.2-1.0)
[2018-10-05 13:45] LABS: AMP/METHAMP Negative (Negative); BARBITURATES Negative (Negative); BENZODIAZEPINES Negative (Negative); COCAINE Negative (Negative); METHADONE Negative (Negative); OPIATES Negative (Negative); PCP Negative (Negative)
[2018-10-05 13:50] LABS: ABSOLUTE NEUTROPHILS 1.7 thou/uL (1.4-8.2); BASOPHILS 0.7 % (0.0-2.0); EOSINOPHILS 4.6 % (0.0-3.0); HEMATOCRIT 30.4 % (37.0-47.0); HEMOGLOBIN 10.4 gm/dL (12.0-15.0); LYMPHOCYTES 54.5 % (24.0-44.0); MCH 30.2 pg (26.0-34.0); MCHC 34.2 g/dL (28.0-37.0); MCV 88.1 fL (80.0-100.0); MONOCYTES 10.1 % (1.0-8.0); PLATELET COUNT 327 thou/uL (150-400); POLYS 30.1 % (36.0-66.0); RBC 3.45 mil/uL (4.20-5.00); RDW 16.2 % (10.5-14.5); WBC 5.6 thou/uL (4.0-11.0)
[2018-10-05 13:58] LABS: ANION GAP 9 mmol/L (7-16); BUN 8 mg/dL (7-18); CALCIUM 9.6 mg/dL (8.5-10.1); CHLORIDE 94 mmol/L (98-107); CO2 26 mmol/L (21-32); CREATININE 1.2 mg/dL (0.6-1.0); GLUCOSE 131 mg/dL (74-106); POTASSIUM 3.2 mmol/L (3.5-5.1); SODIUM 129 mmol/L (136-145)
[2018-10-05 13:59] LABS: BACTERIA-REFLEX 1-9 Few /HPF (None Seen); CRYSTALS None Seen /LPF (None Seen); HYALINE CASTS 0-3 Few /LPF (None Seen); SQUAMOUS 0-3 Few /LPF (0-3); URINE RBC 0-2 Rare /HPF (0-2); URINE WBC-REFLEX 0-5 Rare /HPF (0-5)
[2018-10-05 14:07] LABS: TROPONIN-I <0.06 ng/mL (<0.06)
[2018-10-05 15:54] VITALS: BP 120/38
--- NOTE | 2018-10-05 16:09 | NUR ---
NURSE UNAVAILABLE TO TAKE REPORT AT THIS TIME.
[2018-10-05 16:28] VITALS: BP 118/44
[2018-10-05 16:48] VITALS: BP 122/51
--- NOTE | 2018-10-05 17:33 | NUR ---
report received from Elida/rn in ER @ 1615. pt received to room @ 1630 via stretcher, placed on bed, pt refuse to remove brief. pt request bedpan for stool. iv access funtional w/ issues at this time infusing antibx. tele applied. vss. pt co being cold, numerous blankets applied to pt trunk and head. pt refused to have scd's left on, once applied as she became very frustrated w/ them tightening. pt's daughter had to leave, left phone number for a call later to complete pt's admission paperwork/documentation. pt's daughter stated she would be back again tomorrow w/ her father.
[2018-10-05 19:26] VITALS: BP 124/54
[2018-10-06 04:42] VITALS: BP 113/54
--- NOTE | 2018-10-06 05:00 | NUR ---
ASSUMED CARE OF PT AT 1900. A&Ox2, COOPERATIVE, RESPONDED W/ RELATED CONTENT. VERY UPPER [place], HEARING AIDS AT HOME. ASSMT COMPLETED VIA DAUGHTER OVER THE PHONE. DAUGHTER HAS LOTS OF QUESTIONS ABOUT CONDITION, PROGNOSIS AND BEST PLACEMENT OPTIONS. SHE WILL TRY TO BE HERE IN AM WHEN DOCTOR ROUNDS. PT RESTED WELL OVER NOC. DENIED PAIN. DENIED DIFFICULTY BREATHING. DENIED BURNING W/ URINATION. VS STABLE. FLUIDS INFUSING DOCUMENTED. UPX1 TO BSC. PROGRESSING TOWARDS POC GOALS.
[2018-10-06 07:43] VITALS: BP 116/46
[2018-10-06 16:41] VITALS: BP 118/53
--- NOTE | 2018-10-06 18:49 | NUR ---
ASSUMED CARE AT 0700. PT IS ALERT TO SELF AND PLACE. PT IS VERY HARD OF HEARING BUT LEFT HEARING AIDS AT HOME. PT WILL RESPOND APPROPRIATELY IF YOU TALK LOUD AND SLOW. PT HAD POOR APPETITE FOR BREAKFAST AND LUNCH. PT REQUESTED CEREAL FOR DINNER AND ATE 2 BOWLS OF CEREAL AND A FULL CUP OF HOT TEA. PT GETS UP TO BEDSIDE COMMODE WITH 1 ASSIST. URINE SAMPLE SENT DOWN TO LAB. DAUGHTER WAS HERE AT BEDSIDE THIS AM AND THEN BROUGHT PT'S TO VISIT THIS AFTERNOON. PT SLEPT MOST OF SHIFT BUT WAS EASLIY AWAKEND TO NAME.
[2018-10-06 20:04] VITALS: BP 121/59
[2018-10-06 20:05] VITALS: BP 121/59
--- NOTE | 2018-10-06 20:32 | NUR ---
dr Hopper into see pt gus. Provider gave him some education about infection and reccomends that he quits smoking. given education regarding the need for accurate intakes and outputs. she has been drinking his water and dumping his urine.
--- NOTE | 2018-10-06 22:39 | EKG ---
[address] [place] [address] ELECTROCARDIOGRAM REPORT Name: SANDRA FLORENTINO Room #: 352-P ADM IN M.R.#: [id number] ������������������ Admission: 10/05/18 ������������������ Attend Phys: Eliud Sharma MD Discharge: ������������������ Date of : 31 Report #: [id number] ����������������������������������������������������������������� [id number] THIS REPORT FOR: //name// [facility] ED Test Date: 2018-10-05 Test Time: 13:20:31 Pat Name: SANDRA FLORENTINO Department: Room: [facility] Gender: F Bee Farmer: MAL : 1935 Requested By: Jack Li Order Number: [id number] MD: Alex De La O Measurements Intervals [place] Rate: 62 P: 65 AL: 212 QRS: -19 QRSD: 152 T: 89 QT: 511 QTc: 519 Interpretive Statements Sinus rhythm Borderline prolonged AL interval Left bundle branch block Baseline wander in lead(s) V2 Compared to ECG 09/25/2018 15:30:14 No significant changes Electronically Signed On 10-06-2018 22:38:57 CDT by Alex De La O [email or web address] ��������������������������������������������� <ELECTRONICALLY SIGNED> ���������������������������������������� By: Alex De La O MD ��������������������������������������������� 10/06/18 2238 1320 1320 Alex De La O MD /EPI
[2018-10-07 03:37] VITALS: BP 150/61
[2018-10-07 05:21] LABS: HEMATOCRIT 30.5 % (37.0-47.0); HEMOGLOBIN 10.2 gm/dL (12.0-15.0); MCH 29.8 pg (26.0-34.0); MCHC 33.5 g/dL (28.0-37.0); MCV 89.1 fL (80.0-100.0); RBC 3.42 mil/uL (4.20-5.00); RDW 16.3 % (10.5-14.5)
[2018-10-07 05:33] LABS: CALCIUM 9.1 mg/dL (8.5-10.1); CREATININE 0.9 mg/dL (0.6-1.0); POTASSIUM 3.3 mmol/L (3.5-5.1)
[2018-10-07 07:30] VITALS: BP 153/70
--- NOTE | 2018-10-07 10:33 | NUR ---
assessment: CM REVIEWED CHART AND MET WITH PATIENT AT THE BEDSIDE. PT WAS ADMITTED FROM [facility] SNF DUE TO HYPOTENSION AND AMS. PT WAS RECENTLY AT [facility] AND SENT TO [facility] EARLIER THIS MONTH. PRIOR TO [facility] PATIENT LIVES AT HOME WITH HER AND THEY HAVE A PRIVATE CAREGIVER MON-FRI (OR 7 DAYS A WEEK IF NEEDED) FROM 9-5 AND ALSO HAS A HX OF HAVING [facility]. PT WAS AMBULATING AT HER HOME INDEPENDENTLY AND ALSO WITH A WALKER PRIOR TO GOING TO SNF. WHEN PATIENTS DISCHARGED LAST STAY EARLIER THIS MONTH TO [facility] HER ALSO WENT WITH HER FOR A RESPITE STAY. PATIENTS DAUGHTER JULIETA IS VERY SUPPORTIVE. CM REACHED OUT TO JULIETA AND LEFT VM. CM REQUESTED REMOTE CONTROL MIRROR INSTALLER FAX REFERRAL TO [facility]. CM WILL CONTINUE TO FOLLOW TO ASSIST NEEDED.
--- NOTE | 2018-10-07 10:43 | NUR ---
dp sent referral to [facility], with possible discharge looking at 1 to 2 days. DP will check to see if they received fax and if they can take patient back.
[2018-10-07 15:18] VITALS: BP 118/54
--- NOTE | 2018-10-07 15:27 | NUR ---
ASSUMED CARE OF PT AT APPROX 0700. PT IS ALERT AND ORIENTED X 2-3. FORGETFUL AT TIMES AND IS ABLE TO MAINTAIN 02 SAT >90 ON RA. PT IS MONITORED ON TELE. ASSESSMENT CHARTED. RECIEVED DC ORDERS FROM DOC, PT WILL GO TOMORROW TO HOME WITH DAUGHTER. DAUGHTER IS AWARE AND ABLE TO PICK PATIENT UP TOMORROW MONRING. UPDATED PT AND DAUGHTER ON POC AND NEITHER VERBALIZE ANY FURTHER QUESTIONS OR CONCERNS. DAUGHTER STATES THAT SHE FEELS THAT PT ORIENTATION IS MORE AT BASELINE. PT MAKING GOOD PROGRESS TOWARDS POC GOALS. WILL CONTINUE TO MONITOR.
[2018-10-07 19:34] VITALS: BP 117/50
--- NOTE | 2018-10-08 03:08 | NUR ---
PT WAS IN SAME ROOM ON LAST ADMISSION. NO COMPLIANTS FROM PT THIS EVENING, ONLY TO TURN OFF THE LIGHTS. VSS AND TELE IS SR WITH A BBB. PT SHOULD DC TO HOME TODAY, AND DC ORDERS ARE IN. HOURLY ROUNDING.
[2018-10-08 04:17] VITALS: BP 142/57
[2018-10-08 07:15] VITALS: BP 127/62
[2018-10-08 10:27] VITALS: BP 127/62
--- NOTE | 2018-10-08 10:49 | NUR ---
on-going ASSESSMENT: CM REVIEWED CHART AND PT HAS ORDERS TO DISCHARGE HOME TODAY WITH . CM CONTACTED [facility] [phone] TO NOTIFY THEM. CM FAXED D/C ORDERS TO [facility] AND CONFIRMED THEY RECEIVED THEM. PTS DAUGHTER IS TO REED WORKER PT AROUND 1030AM PER BEDSIDE RN. PTS PRIVATE DUTY IS ARRANGED THROUGH HER DAUGHTER WITH [employer] PRIVATE DUT[employer]. PT REPORTS NO FURTHER NEEDS FROM AT THIS TIME. CM NOTIFIED [facility] PT IS RETURNING HOME WITH . CM HAD PT SIGN PATIENT CHOICE LETTER FOR COMPANY. CASE CLOSED.
--- NOTE | 2018-10-08 13:21 | NUR ---
ASSUMED PATIENT CARE AT 0700. NO CHANGED NOTED. DC TO HOME NOW.
== END 2018-10-08 13:27 | disposition home health service (06) | DRG 683 ==
LOC: ER 13:11 → EROBS 14:58 → 3W 14:58 → ENTRNSPT 10-08 13:20 → EDTRNSPTSTS 10-08 13:22 → 3W 10-08 13:27
PROVIDERS: Emergency Medicine; ADMIT Family Medicine
DX: N17.9 Acute kidney failure, unspecified (principal); N39.0 Urinary tract infection, site not specified; E87.1 Hypo-osmolality and hyponatremia; F03.90 Unspecified dementia, unspecified severity, without behavioral disturbance, psychotic disturbance, mood disturbance, and anxiety; I10 Essential (primary) hypertension; E78.00 Pure hypercholesterolemia, unspecified; E03.9 Hypothyroidism, unspecified; Z79.899 Other long term (current) drug therapy; Z88.0 Allergy status to penicillin; Z88.1 Allergy status to other antibiotic agents; Z88.8 Allergy status to other drugs, medicaments and biological substances
CPT/HCPCS: 10879

== ENCOUNTER 2019-06-18 08:50 | Inpatient (IN) | payer OTHER ==
[~2019-06-18] VITALS: Ht 162.6 cm; Wt 51.8 kg
--- NOTE | ~2019-06-18 | EKG ---
[address] [address] ELECTROCARDIOGRAM REPORT Name: SANDRA FLORENTINO Room #: [facility] M.R.#: [id number] Admission: Attend Phys: Discharge: Date of : 31 Report #: [id number] THIS REPORT FOR: //name// [facility] ED Test Date: 2019-06-18 Test Time: 09:39:03 Pat Name: SANDRA FLORENTINO Department: Room: Gender: F Stump Blower: ramiro mallory : 1935 Requested By: Jack Li Order Number: [id number] MD: Measurements Intervals [place] Rate: 80 P: 77 PA: 192 QRS: -15 QRSD: 137 T: 106 QT: 411 QTc: 475 Interpretive Statements Sinus rhythm Left bundle branch block Compared to ECG 10/05/2018 13:20:31 No significant changes [email or web address] By: 8 8 Epiphany MD Ann /EPI
[2019-06-18 09:01] VITALS: BP 144/70
[2019-06-18] MEDS ORDERED: MUCINEX100 MG PO (09:08)
[2019-06-18 09:38] LABS: URINE BILIRUBIN NEGATIVE (Negative); URINE BLOOD 2+ (Negative); URINE CLARITY CLEAR; URINE COLOR YELLOW; URINE GLUCOSE-RANDOM* NEGATIVE (Negative); URINE KETONES NEGATIVE (Negative); URINE LEUKOCYTES-REFLEX NEGATIVE (Negative); URINE NITRITE-REFLEX NEGATIVE (Negative); URINE PROTEIN (DIPSTICK) NEGATIVE (Negative); URINE SPECIFIC GRAVITY 1.025 (1.005-1.035); URINE UROBILINOGEN 0.2 E.U./dl (0.2-1.0)
[2019-06-18 09:44] LABS: HEMATOCRIT 38.7 % (37.0-47.0); HEMOGLOBIN 12.9 gm/dL (12.0-15.0); MCH 30.5 pg (26.0-34.0); MCHC 33.2 g/dL (28.0-37.0); MCV 91.8 fL (80.0-100.0); PLATELET COUNT 316 thou/uL (150-400); RBC 4.21 mil/uL (4.20-5.00); RDW 14.2 % (10.5-14.5); WBC 6.4 thou/uL (4.0-11.0)
[2019-06-18 09:47] LABS: CALCIUM 11.4 mg/dL (8.5-10.1); CREATININE 1.4 mg/dL (0.6-1.0); MAGNESIUM 2.3 mg/dL (1.8-2.4)
[2019-06-18 09:49] LABS: AMORPHOUS URATES Few /LPF (None Seen); BACTERIA-REFLEX 1-9 Few /HPF (None Seen); HYALINE CASTS 0-3 Few /LPF (None Seen); SQUAMOUS None Seen /LPF (0-3); URINE RBC 0-2 Rare /HPF (0-2); URINE WBC-REFLEX None Seen /HPF (0-5)
[2019-06-18 10:33] LABS: ABSOLUTE NEUTROPHILS 1.2 thou/uL (1.4-8.2); ANISOCYTOSIS SLIGHT; ATYPICAL LYMPHS 2 %
[2019-06-18 11:06] VITALS: BP 148/55
[2019-06-18 15:10] VITALS: BP 125/52
[2019-06-18 15:30] VITALS: BP 109/54
--- NOTE | 2019-06-18 18:12 | NUR ---
[age] OLD MALE ADMITTED TO 4N ROOM 410 UNDER THE CARE OF DR. PIZANO. PT WAS BROUGHT INTO THE ER AFTER C/O OF BEING WEAK FOR 10 DAYS AND ALSO A FALL TODAY. PT ALERT AND ORIENTED TIMES FOUR, BUT SOMEWHAT SLOW TO RESPOND. PT VSS, IVF INFUSING PER ORDER. PT C/O PAIN IN RIGHT KNEE FROM FALL. DENIES SOA. PT ATE A VERY SMALL PROTION OF HER DINNER. PT UP TO BSC WITH ASSIST OF ONE. WILL CONTINUE TO MONITOR.
[2019-06-18 19:54] VITALS: BP 144/71
--- NOTE | 2019-06-19 03:33 | NUR ---
ASSUMED CARE OF PATIENT AT APPROX. 1999. ASSESSMENT CHARTED, MEDICATIONS GIVEN PER MAR. VSS. PATIENT IS A&OX4 BUT HARD OF HEARING. PATIENT IS PLEASANT, DENIES PAIN AND GETS UPX1 ASSIST TO BSC. PATIENTS O2 SATURATION IS WNL ON RA. PATIENT HAS A R ANTECUBITAL IV W FLUIDS RUNNING AT 100. PRESSURE ALARM TURNS ON OFTEN; THIS NURSE WRAPPED SITE W PROTECTIVE WRAP. PATIENT DENIES PAIN AND VOICES NO OTHER NEEDS AT THIS TIME. FALL PRECAUTIONS ARE IN PLACE; PATIENT CALLS OUT APPROPRIATELY. PER PHYSICIAN, PLAN IS TO CONSULT ENVELOPE MACHINE OPERATOR, CONT IV FLUIDS AND ABX, AND WORK WITH PT AND OT. PATIENT TURNS SELF AT LEAST EVERY HOUR. WILL CONTINUE TO MONITOR AND FOLLOW PLAN OF CARE
[2019-06-19 09:00] VITALS: BP 120/64
--- NOTE | 2019-06-19 10:44 | NUR ---
INITIAL ASSESSMENT: SW reviewed chart and spoke with nursing. Pt was admitted from home due to inability to ambulate/recent fall. Therapy ordered to evaluate pt for discharge needs. SW met with pt at bedside. Pt very drowsy during time of visit and requests SW to contact her dtr. Pt with hx of dementia. Per chart, pt lives at home with her spouse. Pt and spouse have used private duty care in the past. Pt has been to [facility] SNF and used [facility] in the past. Pt's PCP is Dr. Sharma. BUCKY left voice message for pt's dtr, Eleanor, to obtain info for assessment. [facility] is following to assist as needed with discharge planning.
[2019-06-19] MEDS ORDERED: CIPRO500 M1 PO (13:48)
[2019-06-19 14:37] VITALS: BP 120/64
== END 2019-06-19 15:23 | disposition home or self-care (01) | DRG 682 ==
LOC: ER 08:50 → 4N 11:06 → EROBS 11:06 → 4N 15:29
PROVIDERS: Emergency Medicine; ADMIT Family Medicine
DX: N17.9 Acute kidney failure, unspecified (principal); G92 Toxic encephalopathy; N39.0 Urinary tract infection, site not specified; M62.84 Sarcopenia; E89.0 Postprocedural hypothyroidism; E78.00 Pure hypercholesterolemia, unspecified; F03.90 Unspecified dementia, unspecified severity, without behavioral disturbance, psychotic disturbance, mood disturbance, and anxiety; H54.61 Unqualified visual loss, right eye, normal vision left eye; Z79.2 Long term (current) use of antibiotics; Z79.899 Other long term (current) drug therapy; Z88.0 Allergy status to penicillin; Z88.2 Allergy status to sulfonamides; Z87.440 Personal history of urinary (tract) infections
CPT/HCPCS: 10091

== ENCOUNTER 2019-07-01 11:03 | Inpatient (IN) | payer OTHER ==
[~2019-07-01] VITALS: Ht 162.6 cm; Wt 49.9 kg
[2019-07-01 11:03] VITALS: BP 124/71
[~2019-07-01 11:03] MED LIST changes: +CIPRO500 M1 PO; +MUCINEX100 MG PO
[2019-07-01] MEDS ORDERED: CIPRO500 M1 PO (11:21)
[2019-07-01] MEDS ORDERED: REMERON15 M2 PO (11:21)
[2019-07-01 12:12] LABS: HEMATOCRIT 40.3 % (37.0-47.0); HEMOGLOBIN 13.3 gm/dL (12.0-15.0); MCV 91.1 fL (80.0-100.0); PLATELET COUNT 301 thou/uL (150-400); RBC 4.43 mil/uL (4.20-5.00); RDW 14.1 % (10.5-14.5); WBC 9.1 thou/uL (4.0-11.0)
[2019-07-01 12:17] LABS: CALCIUM 10.2 mg/dL (8.5-10.1); CREATININE 1.8 mg/dL (0.6-1.0); POTASSIUM 4.2 mmol/L (3.5-5.1)
[2019-07-01 12:23] LABS: ALBUMIN 3.8 g/dL (3.4-5.0); TOTAL BILIRUBIN 0.3 mg/dL (<0.1-1.0); TOTAL PROTEIN 8.1 g/dL (6.4-8.2)
[2019-07-01 12:34] LABS: ABSOLUTE NEUTROPHILS 5.4 thou/uL (1.4-8.2); ATYPICAL LYMPHS 2 %; PLATELET ESTIMATE NORMAL
[2019-07-01 12:40] LABS: URINE BILIRUBIN NEGATIVE (Negative); URINE BLOOD 2+ (Negative); URINE CLARITY CLEAR; URINE COLOR YELLOW; URINE GLUCOSE-RANDOM* NEGATIVE (Negative); URINE KETONES NEGATIVE (Negative); URINE LEUKOCYTES-REFLEX NEGATIVE (Negative); URINE NITRITE-REFLEX NEGATIVE (Negative); URINE PROTEIN (DIPSTICK) TRACE (Negative); URINE UROBILINOGEN 0.2 E.U./dl (0.2-1.0)
[2019-07-01 12:55] LABS: HYALINE CASTS 4-10 Moderate /LPF (None Seen); SQUAMOUS None Seen /LPF (0-3)
[2019-07-01 12:56] LABS: FINE GRANULAR CASTS 0-3 Few /LPF (None Seen); URINE RBC 3-10 Few /HPF (0-2)
[2019-07-01 12:57] LABS: CRYSTALS None Seen /LPF (None Seen); URINE WBC-REFLEX 0-5 Rare /HPF (0-5)
[2019-07-01 15:57] VITALS: BP 116/63
[2019-07-01 19:25] VITALS: BP 97/58
[2019-07-02 03:25] VITALS: BP 101/49
--- NOTE | 2019-07-02 04:27 | NUR ---
PT TO UNIT AROUND 1730. ASSUMED PT CARE AT 1900. ADMISSION ASSESSMENT COMPLETED. PT IS ALERT, ORIENTED TO PERSON. DOES NOT RESPOND MUCH WHEN SPOKEN TO. MULTIPLE LOOSE STOOLS TONIGHT. PUT ON ISOLATION PRECAUTIONS, ATTEMPTING TO GET A STOOL SAMPLE. PT REPORTS PAIN IN LEGS EALIER, BUT NONE NOW. ANTIBIOTICS AND FLUIDS RUNNING PER ORDER. BP STILL LOW, BUT COMING UP SOME. BUTTOCKS BRIGHT RED, POSSIBLY A RASH, BARRIER CREAM APPLIED. PT BEEN SLEEPING ALL SHIFT, WILL CONTINUE TO MONITOR.
[2019-07-02 07:55] VITALS: BP 122/43
--- NOTE | 2019-07-02 12:34 | EKG ---
[facility] [place] [address] ELECTROCARDIOGRAM REPORT Name: SANDRA FLORENTINO Room #: 446- ADM IN M.R.#: [id number] Admission: 07/01/19 Attend Phys: Eliud Sharma MD Discharge: Date of : 31 Report #: [id number] THIS REPORT FOR: cc: Eliud Sharma MD, Neal A. 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: ANSLEY : 1935 Requested By: Charla Lewis Order Number: [id number] MD: Donte Pratt Measurements Intervals [place] Rate: 111 P: 87 ID: [id number] QRS: -14 QRSD: 136 T: 143 QT: 358 QTc: 487 Interpretive Statements Sinus tachycardia Left bundle branch block Compared to ECG 06/18/2019 09:39:03 No significant change was found Electronically Signed On 07-02-2019 8:49:19 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
--- NOTE | 2019-07-02 13:10 | NUR ---
WOUND CONSULT; THE BILATERAL BUTTOCKS WAS ASSESSED. THE AREA(S) OF CONCERN ARE HAVE BLANCHABLE ERYTHEMA. LIKELY A FUNGAL ETIOLOGY. THE AREA SEEM TO HAVE A SLIGHT ELEVATED TEMPERATURE. RECOMMENDATION; ANTIFUNGAL BARRIER CREAM AND RE-EVAL TOMORROW. DISCUSSED WITH LORENA
[2019-07-02 15:17] VITALS: BP 111/47
[2019-07-02 15:38] VITALS: BP 111/47
--- NOTE | 2019-07-02 15:39 | NUR ---
Case opened to follow for dc planning. Global Sales Director visited briefly with pt at bedside and dtr Eleanor via phone. The pt was here recently for a UTI and dc'd to home with no needs on 06/19/2019. She lives at home with her spouse who has [employer]. They have 24 hr private duty for supervision and homemaking services. The pt's dtr Eleanor takes them to appts and takes the pt out weekly for her hair appt. The pt is a&ox3 and uses a rwalker outside the home. She has 3 steps with railings to enter the house and 5 steps up to her bedroom and bath (split level). She has had hh per [facility] in the past and they would like to use them again. They are hoping she can recover her strength and return home with RN/OT/PT vs snf. They would be open to snf if recommended and the pt is not able to walk or transfer on her own. She has been to [facility] in the past and her spouse usually does a respite stay during this time as they do not like to be seperated. DC production planner scheduler to advise [facility] of possible referral. Will ask for therapy evals. Flu is negative but cdiff is still pending. Will follow.
--- NOTE | 2019-07-02 15:41 | NUR ---
Received awake on bed. Due medications given as prescribed, crushed medications and given with apple sauce. On room air. Vital signs stable. A+O to self. On regular diet- assisted in eating and drinking; tolerating meals- no nausea, no vomiting and no abdominal pain noted; needs encouragement in eating and drinking. Assisted in ADLs. With NS at 100cc/hr, infusing well at L AC, on IV antibiotics. With redness on her buttocks noted, possible fungal infection, wound coordinator consult placed, pt seen by Wound nurse Stef- to apply anti fungal cream. Still a/w stool sample for C.Diff, unable to collect because most of the time it is mixed with urine, will keep on trying. Pt seen by Dr Sharma this morning, for flu swab- collected and sent. Maintained on isolation due to Cdiff, to maintain until sample is collected and processed. Able to use bedside commode, with standby assist and gait belt. To continue monitoring patient.
[2019-07-02 19:44] VITALS: BP 119/51
[2019-07-03 04:41] VITALS: BP 102/41
--- NOTE | 2019-07-03 06:23 | NUR ---
ASSESSED AT START OF SHIFT PT A&0 X3. TULALIP STATED DOESN'T HAVE HEARING AIDS. IV INTACT AND F;LUIDS INFUISING. PT UP WITH ASSISTX1 TO BSC. POSITION SELF WELL IN BED. FALL PREC IN PLACE AND CALL LIGHT IN REACH. ANTIFUNGAL CREAM APPLIED IN BUTTOUCK AREA. WILL CONT WITH POC TILL EOS
[2019-07-03 07:51] VITALS: BP 114/40
[2019-07-03] MEDS ORDERED: DOXYCYCLINE HYC50 MG PO (07:53)
--- NOTE | 2019-07-03 12:56 | NUR ---
ASSUMED CARE OF PT APPROX 0715, ALERT TO SELF, BDATE, THAT IS ALL AT THIS TIME. HAD A JOKE WHEN ASKED ABOUT NAME OF PRESIDENT. VERY CLOSE SBA TO BSC/WHEEL CHAIR/USES WALKER. 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 MINIMAL APPETITE, IS A FOOD SET UP AND NEEDS ENCOURAGEMENT. INCONTINENT OF BOTH B/B. ONLY GENERALIZED ALL ACHINESS. SEE SEPARATE INTERVENTIONS FOR ASSESMENTS. HAD BM THIS A.M. THUS FAR IS NOT IMPULSIVE, ENCOURAGED HER TO USE CALL LIGHT FOR NEEDS AND SHE SHOWS SUCCESSFUL RETURN DEMO. VERY VERY SOBOBA.
--- NOTE | 2019-07-03 13:33 | NUR ---
PT'S OUTPUT CANNOT BE MEASURED BY ML SHE'S INCONTINENT. OF 13:00 SHE'S HAD TWO WET CHUX AND ONE BOWEL MOVEMENT.
--- NOTE | 2019-07-03 15:36 | NUR ---
REPORT RECEIVED FROM SANTOSH RN AT 1305, PT ASLEEP IN BED, AND DAUGHTER AT SIDE, PLAN OF CARE DISCUSSED WITH DAUGHTER, SHE VERBALIZED UNDERSTANDING, WILL MONITOR.
[2019-07-03 16:11] VITALS: BP 125/58
--- NOTE | 2019-07-03 16:46 | NUR ---
BOTH THERAPIES ARE REC POST-ACUTE REHAB FOR PT. S/W DTR IN ROOM AND SHE WANTS THIS WELL. SHE SAYS [facility] AND SEND A REFERRAL THERE AND WILL NEED A RESPITE BED FOR WELL. NOTIFIED DR PIZANO AND HE IS AGREEABLE TO THIS PLAN WELL. ANTICIPATE PT WILL BE READY FOR TRANSFER TOMORROW.
--- NOTE | 2019-07-03 16:59 | NUR ---
FAXED REFERRAL TO [facility] SPOKE WITH KAMRYN SHE WILL REVIEW REFERRAL AND THAT PT'S WILL NEED A RESPITE STAY ALSO SHE SAYS SHE HAS HAD THEM BEFORE AT THE FACILITY AND THAT WE ANTICIPATE DC TOMORROW. DP TO FOLLOW.
[2019-07-03 19:23] VITALS: BP 106/38
[2019-07-04 00:05] VITALS: BP 130/51
--- NOTE | 2019-07-04 03:14 | NUR ---
ASSUMED PT CARE AT 1900. WHEN ASKED IF PT WAS DOING OK, SHE TOLD ME SHE IS UPSET THAT NO ONE IS DOING ANYTHING ABOUT HER STOMACH PAIN. NOT SURE IF THIS HAS EVER BEEN MENTIONED. CLAIMS SHE GETS STOMACH/CHEST PAIN EVERYTIME SHE EATS OR DRINKS AND ITS BEEN GOING ON FOR DAYS. PT INCONTINENT OF URINE, NO BM TONIGHT. MEDS GIVEN CRUSHED IN [place] PER PT REQUEST. OFFERING SIPS OF WATER EVERY TIME I GO IN THE ROOM. PT TURNS SELF FREQ, BOTTOM STIL VERY RED. WILL CONTINUE TO MONITOR.
[2019-07-04 03:35] VITALS: BP 119/47
[2019-07-04 07:23] VITALS: BP 125/35
[2019-07-04 10:45] LABS: HEMATOCRIT 32.6 % (37.0-47.0); MCH 30.2 pg (26.0-34.0); MCHC 32.7 g/dL (28.0-37.0); MCV 92.2 fL (80.0-100.0); RBC 3.53 mil/uL (4.20-5.00); RDW 14.7 % (10.5-14.5); WBC 6.7 thou/uL (4.0-11.0)
[2019-07-04 10:47] LABS: HEMOGLOBIN 10.7 gm/dL (12.0-15.0)
[2019-07-04 10:53] LABS: CALCIUM 9.3 mg/dL (8.5-10.1); CREATININE 1.1 mg/dL (0.6-1.0); POTASSIUM 3.9 mmol/L (3.5-5.1)
--- NOTE | 2019-07-04 13:12 | NUR ---
PT A&O TO SELF. IV INTACT IN L AC INFUSING FLUIDS W/O COMPS. SLEEPY TODAY. REFUSED BREAKFAST THOUGH DRANK 50% OF SUPPLIMENT DRINK. TRANSFERS TO BSC WITH ASSIST. DAUGHTER IN ROOM. WILL CONT POC.
--- NOTE | 2019-07-04 15:36 | NUR ---
LINDA WAS NOTIFIED THAT [facility] CAN ACCEPT PT AND DO RESPITE FOR SPOUSE BUT THEY WOULD BE IN SEPERATE ROOMS UNTIL SUNDAY OF NEXT WEEK. LINDA INFORMED DTR AND SHE INDICATED THAT WASN'T SUTIABLE. SHE REQUESTED THAT REFERRALS BE SENT TO [facility] FOR POSSIBLE SKILLED ADMISSION FOR PT AND RESPITE FOR SPOUSE. LINDA CALLED [facility] AND LEFT [place]Y [place] IN ADMISSIONS.
--- NOTE | 2019-07-04 16:58 | NUR ---
FAXED REFERRAL TO [facility] RECEIVED CONFIRMATION AND LEFT MSG WITH SABRA IN ADM. FAXED REFERRAL TO [facility] RECEIVED CONFIRMATION AND LEFT MSG WITH YULY IN ADM THAT PT'S WILL NEED RESPITE STAY. DP TO FOLLOW.
[2019-07-04 17:02] VITALS: BP 134/50
[2019-07-04 19:50] VITALS: BP 115/52
--- NOTE | 2019-07-05 08:03 | NUR ---
ASSUMED PT CARE AT 1700. [address] PIZANO OF PTS COMPLAINTS OF ABDOMINAL PAIN, WHEN HE ASKED HER, SHE DENIED ANY. PT REPORTS ABDOMINAL PAIN AGAIN LAST NIGHT AGGRAVATED BY EATING/DRINKING. DTR ALSO BROUGHT IT UP TO ME. STILL HAS A LOOSE COUGH. MUCH MORE ORIENTED TONIGHT. KNEW WHERE SHE WAS, TOLD ME ABOUT HER FAMILY. BUTTOCKS REDNESS HAS GREATLY IMPROVED WELL. OFFERED SIPS OF WATER FREQ. IV FLUIDS RUNNING PER ORDER. VSS.
[2019-07-05 12:05] VITALS: BP 120/50
--- NOTE | 2019-07-05 17:10 | NUR ---
ASSUMED CARE OF THE PT AT 0700. PT IS IMPULSIVE AND CONTINUES TO GET OUT OF THE BED, BED ALARM ON. AWAITING STOOL SAMPLE FOR THE LAB, PER ORDERS. L UPPER ARM IV DRY AND INTACT. BUTTOCKS REDDENED, NO C/O PAIN, CREAM APPLIED. FALL PRECAUTIONS IN PLACE, BED IN LOWEST POSITION. WILL CONTINUE TO MONITOR THE PT.
[2019-07-05 19:02] LABS: HEMATOCRIT 30.2 % (37.0-47.0); HEMOGLOBIN 10.1 gm/dL (12.0-15.0); MCH 30.4 pg (26.0-34.0); MCHC 33.4 g/dL (28.0-37.0); MCV 90.9 fL (80.0-100.0); RBC 3.32 mil/uL (4.20-5.00); RDW 14.3 % (10.5-14.5); WBC 5.9 thou/uL (4.0-11.0)
[2019-07-05 19:10] VITALS: BP 135/48
[2019-07-05 19:16] LABS: CALCIUM 9.3 mg/dL (8.5-10.1); MAGNESIUM 1.2 mg/dL (1.8-2.4); POTASSIUM 3.5 mmol/L (3.5-5.1)
[2019-07-05 19:30] VITALS: BP 116/46
[2019-07-05 19:56] LABS: % SATURATION 16 % (20-39); IRON 27 ug/dL (50-170); TIBC 166 ug/dL (250-450)
[2019-07-05 22:04] LABS: FOLIC ACID 53.7 ng/mL (8.6-58.9)
--- NOTE | 2019-07-06 03:10 | NUR ---
ASSESSMENT DOCUMENTED.PT BEEN RESTING IN NO ACUTE DISTRESS.A/O WITH CONFUSION AND FORGETFULNESS.EASY TO ORIENT.SBA WITH TOILETING,USES BSC,UO ADEQUATE.RA W/O RESP DISTRESS.IVF.PT DENIES PAIN OR ANY DISTRESS AT THIS TIME.POC IS TO DSICHARGE TO HOME W/HH WHEN STABLE.
[2019-07-06 04:30] VITALS: BP 133/56
[2019-07-06 08:26] VITALS: BP 120/54
[2019-07-06 12:11] LABS: HEMATOCRIT 29.2 % (37.0-47.0); HEMOGLOBIN 9.8 gm/dL (12.0-15.0); MCH 30.6 pg (26.0-34.0); MCHC 33.6 g/dL (28.0-37.0); RBC 3.21 mil/uL (4.20-5.00); RDW 14.2 % (10.5-14.5); WBC 7.3 thou/uL (4.0-11.0)
[2019-07-06 12:30] LABS: MAGNESIUM 1.1 mg/dL (1.8-2.4); POTASSIUM 3.2 mmol/L (3.5-5.1)
[2019-07-06 17:10] VITALS: BP 132/57
--- NOTE | 2019-07-06 19:50 | NUR ---
ASSUMED CARE OF THE PT AT 0700. PT HAS REDDENED AREA ON CLARISA BUTTOCKS. GAVE REPORT OUTSIDE THE DOOR PER DAUGHTER. PT HAD RECTAL TUBE PLACED AND PULLED OUT TUBING, NO DAMAGE EVIDENCED. L UPPER ARM IV DRY AND INTACT. STOOL SPECIMEN SENT TO LAB. NO C/O PAIN. LINEN CHANGED IN THE ROOM MULTIPLE TIMES DUE TO INCOTINENCE OF BOWEL AFTER RECTAL TUBE PULLED OUT. BED IN LOWEST POSITION, CALL LIGHT IN REACH, FALL PRECAUTIONS IN PLACE. WILL GIVE REPORT TO NOC NURSE.
--- NOTE | 2019-07-07 05:19 | NUR ---
Pt. rested quietly at short intervals during the night when checked on during frequent rounds. She has been up to the bedside comode several times with assistance. Continues to have loose stools. Barrier cream applied to red buttocks. Pt. offers no c/o pain. Bed alarm is on.
[2019-07-07 05:20] VITALS: BP 139/55
[2019-07-07 05:26] LABS: HEMATOCRIT 27.7 % (37.0-47.0); HEMOGLOBIN 9.4 gm/dL (12.0-15.0); MCH 30.6 pg (26.0-34.0); MCHC 33.9 g/dL (28.0-37.0); MCV 90.1 fL (80.0-100.0); RBC 3.07 mil/uL (4.20-5.00); RDW 13.8 % (10.5-14.5); WBC 6.2 thou/uL (4.0-11.0)
[2019-07-07 05:43] LABS: CALCIUM 8.9 mg/dL (8.5-10.1); CREATININE 0.8 mg/dL (0.6-1.0); MAGNESIUM 2.1 mg/dL (1.8-2.4)
[2019-07-07 09:03] VITALS: BP 131/56
[2019-07-07 18:36] VITALS: BP 149/69
--- NOTE | 2019-07-07 20:56 | NUR ---
PATIENTS CREAM TO BOTTOM APPLIED TO BUTTOCKS BY THIS NURSE AND WOUND CARE NURSE WHO STATED WAS HEALED BUT TO CONTINUE TO TURN EVERY 2 HOURS HE WOUND POSSIBLY ORDER AIR MATRESS
[2019-07-08 00:19] VITALS: BP 145/63
[2019-07-08 04:43] VITALS: BP 138/62
[2019-07-08 06:37] LABS: HEMATOCRIT 29.1 % (37.0-47.0); HEMOGLOBIN 9.8 gm/dL (12.0-15.0); MCH 30.5 pg (26.0-34.0); MCHC 33.6 g/dL (28.0-37.0); MCV 90.5 fL (80.0-100.0); RBC 3.22 mil/uL (4.20-5.00); RDW 13.8 % (10.5-14.5); WBC 5.8 thou/uL (4.0-11.0)
[2019-07-08 06:47] LABS: CALCIUM 8.8 mg/dL (8.5-10.1); CREATININE 0.9 mg/dL (0.6-1.0); MAGNESIUM 1.5 mg/dL (1.8-2.4); POTASSIUM 3.7 mmol/L (3.5-5.1)
--- NOTE | 2019-07-08 07:26 | NUR ---
07/07/19 1900 ASSUMED CARE OF PT AFTER BEDSIDE REPORT. 2144 ASSESSMENT COMPLETED, PT HAS BEEN CONTINENT OF STOOL AND BOWEL, BUT HAVE BEEN UNABLE TO COLLECT STOOL SAMPLE SECONDARY TO MIXING OF WATERY STOOL AND URINE, PT CONFUSED AT TIMES AND IS VERY MARSHALL WHICH MAY BE A CONTRIBUTING FACTOR. FLUIDS INFUSING WITHOUT DIFFICULTY, AND SPECIAL CONTACT PRECAUTIONS, FALL PRECAUTIONS IN PLACE, WILL CONTINUE TO MONITOR WITH HOURLY ROUNDING. 07/08/19 0730 REPORT GIVEN TO [facility] AND CARE TURNED OVER
[2019-07-08 07:30] VITALS: BP 147/65
[2019-07-08] MEDS ORDERED: LOPERAMIDE 2 MG2 M1 PO (07:46)
--- NOTE | 2019-07-08 15:39 | NUR ---
LINDA AND SC AUTOMOBILE PARKER SPOKE WITH ADMISSIONS STAFF AT [facility] THIS AM AND THEY STATED THAT THEY WERE WAITING ON CLINICAL INFO ON PT'S SPOUSE. CM HAD SPOKEN WITH PT'S STR AND SHE INDICATED THAT [facility] [address] AND THAT HE HAD A PHYSICAL 3 MONTHS AGO AND THAT SHE HAD HIS MED LIST AND COULD PROVIDE TO FACILITY. LINDA ASKED SABRA IF THEY HAD GOTTEN INFO FROM PT'S DTR AND SHE INDICATED THAT [facility] HAS SPOKEN WITH HER BUT THEY STILL HAD NO RECORDS FOR HIM. PHYSICAIN INDICATED PT IS MEDICALLY STABLE FOR DC TO SNF. [facility] CAN TAKE BOTH PT'S TODAY. CM NOTIFIED PT'S DTR AND SHE INDICATED PT TOLD HERE SHE WOULD RATHER GO HOME THEN TO [place] BUT SHE WAS AGREEABLE TO TRYING TO BOTH GO SOMEWHERE ELSE. LINDA PROVIDED DTR WITH ADMISSION DIRECTORS CELL NUMBER FOR HER TO SPEAK TO HER DIRECTLY. CM TO FOLLOW INDICATED WITH DC PLANNING. FOLLOWED UP WITH PT'S DTR THIS AM AND SHE INDICATED THAT SHOULD
[2019-07-08 15:52] VITALS: BP 136/71
[2019-07-08 19:38] VITALS: BP 129/49
--- NOTE | 2019-07-08 20:18 | NUR ---
PT is A&OX3, But pt is forgetful, pt starts eating and drinking, pt's diarrhea has improved, pt's vs are stable, pt denies pain and n/v .
--- NOTE | 2019-07-08 23:36 | NUR ---
NURSE ASSUMED CARE THIS EVENING AROUND 2200. PATIENT RESTING DURING REPORT RN'S WERE IN ROOM. BOARD UPDATED, BED ALARM SET. NURSE WILL CONTINUE TO MONITOR PATIENT THROUGHOUT THE NIGHT.
--- NOTE | 2019-07-09 01:58 | NUR ---
PATIENT ASSISTED FROM THE BED TO THE COMMODE. SHE TOLERATED TRANSFER WELL. SHE IS ABLE TO TURN SELF IN BED. SHE IS RESTING AGAIN IN BED WITH BED ALARM SET.
--- NOTE | 2019-07-09 02:48 | NUR ---
ASSESSESED AT START OF SHIFT PT A&OX3 AMBLER. UP TO BSC WITH ASSITX1. SEBASTIEN EVENING MEDS. FALL PREC IN PLACE. REPORT GIVEN TO NURSE HATHAWAY TO [facility]
[2019-07-09 06:51] LABS: HEMATOCRIT 28.7 % (37.0-47.0); HEMOGLOBIN 9.5 gm/dL (12.0-15.0); MCH 30.1 pg (26.0-34.0); MCHC 33.1 g/dL (28.0-37.0); MCV 90.9 fL (80.0-100.0); RBC 3.16 mil/uL (4.20-5.00); RDW 13.9 % (10.5-14.5); WBC 5.9 thou/uL (4.0-11.0)
[2019-07-09 07:07] LABS: CALCIUM 9.3 mg/dL (8.5-10.1); CREATININE 0.9 mg/dL (0.6-1.0); MAGNESIUM 1.5 mg/dL (1.8-2.4)
[2019-07-09 07:33] VITALS: BP 123/60
--- NOTE | 2019-07-09 14:14 | NUR ---
[facility] contacted x 2 today to confirm if they can accept the pt today for a snf stay irregardless of pt's spouse request for respite there. Dtr Eleanor here and states she realizes the pt needs to go to rehab whether or not they can take her spouse for a respite stay. She has dropped a CD off for Kay in admissions with medical records for the pt's spouse. Awaiting response from [facility].
[2019-07-09 15:45] VITALS: BP 125/48
[2019-07-09 16:39] VITALS: BP 125/48
--- NOTE | 2019-07-09 17:40 | NUR ---
VSS-AFEBRILE. ALERT AND ORIENTED X 2-3. LUNGS CLEAR-ROOM AIR. NO C/O PAIN. CALLS APPROPRIATELY WHEN NEEDING TO USE COMMODE. POOR APPETITE. CALLED REPORT TO JIMBO RN AT [facility], IV REMOVED, AND PATIENT WAS DRESSED IN CLOTHING BROUGHT FROM HOME. LEFT UNIT WITH [facility] TRANSPORTATION PERSONNEL, AND WITH ALL PERSONAL BELONGINGS.
== END 2019-07-09 18:55 | DRG 682 ==
LOC: ER 11:03 → 4S 15:34 → EROBS 15:34 → 4S 18:11
PROVIDERS: Emergency Medicine Emergency Medical Services; Internal Medicine; ADMIT Family Medicine
DX: N17.9 Acute kidney failure, unspecified (principal); E43 Unspecified severe protein-calorie malnutrition; G93.41 Metabolic encephalopathy; N39.0 Urinary tract infection, site not specified; E87.1 Hypo-osmolality and hyponatremia; Z68.1 Body mass index [BMI] 19.9 or less, adult; J98.11 Atelectasis; R41.82 Altered mental status, unspecified; J40 Bronchitis, not specified as acute or chronic; E86.0 Dehydration; H54.50 Low vision, one eye, unspecified eye; E78.00 Pure hypercholesterolemia, unspecified; F03.90 Unspecified dementia, unspecified severity, without behavioral disturbance, psychotic disturbance, mood disturbance, and anxiety; E03.9 Hypothyroidism, unspecified; J06.9 Acute upper respiratory infection, unspecified; R19.7 Diarrhea, unspecified; D64.9 Anemia, unspecified; D50.9 Iron deficiency anemia, unspecified; E87.6 Hypokalemia; E83.42 Hypomagnesemia; Z91.81 History of falling; Z79.2 Long term (current) use of antibiotics; Z79.899 Other long term (current) drug therapy; Z88.0 Allergy status to penicillin; Z88.8 Allergy status to other drugs, medicaments and biological substances; Z88.2 Allergy status to sulfonamides; Z80.0 Family history of malignant neoplasm of digestive organs
CPT/HCPCS: 10195